=== PATIENT | female | born 1980 | race African-American/Black ===

== ENCOUNTER 2024-08-05 13:44 | Emergency (ER) | payer OTHER ==
[~2024-08-05] VITALS: Ht 165.1 cm; Wt 103.0 kg
[2024-08-05 13:54] VITALS: O2SAT 99
[2024-08-05] MEDS: ACETAMINOPHEN 325MG TABLET PO STA (15:15)
[2024-08-05 16:14] LABS: CLARITY URINE CLEAR (CLEAR); COLOR URINE YELLOW (YELLOW); GLUCOSE URINE NEGATIVE (NEGATIVE); KETONES URINE NEGATIVE (NEGATIVE); LEUKOCYTE ESTERASE URINE NEGATIVE (NEGATIVE); NITRITE URINE NEGATIVE (NEGATIVE); OCCULT BLOOD URINE NEGATIVE (NEGATIVE); PROTEIN URINE NEGATIVE (NEGATIVE); SPECIFIC GRAVITY URINE 1.014 (1.005-1.030); UROBILINOGEN URINE 0.2 E.U./dL (0.2-1.0)
[2024-08-05 16:53] LABS: BASOPHILS % 0.4 % (0.0-2.0); EOSINOPHILS % 0.9 % (0.0-5.0); HEMATOCRIT. 42.1 % (36.0-48.0); HEMOGLOBIN. 13.6 g/dL (12.0-16.0); LYMPHOCYTES % 27.3 % (20.0-50.0); MEAN CORPUSCULAR HEMOGLOBIN 30.7 pg (28.0-32.0); MEAN CORPUSCULAR HGB CONC 32.4 g/dL (31.0-37.0); MEAN CORPUSCULAR VOLUME 94.8 fL (81.0-99.0); MONOCYTES % 7.6 % (2.0-8.0); NEUTROPHILS % 63.8 % (40.0-76.0); PLATELET 242 x1000/uL (130-400); RED BLOOD CELL COUNT 4.44 mill/uL (4.2-5.4); RED CELL DISTRIBUTION WIDTH 15.2 % (11.6-14.6)
[2024-08-05 16:54] LABS: INFLUENZA TYPE A Presumptive Negative (Pres. Neg.)
[2024-08-05 16:55] LABS: INFLUENZA TYPE B Presumptive Negative (Pres. Neg.)
[2024-08-05 16:57] LABS: CHLORIDE 102 mEq/L (98-107); SODIUM 138 mEq/L (136-145)
[2024-08-05 16:58] LABS: CALCIUM 9.2 mg/dL (8.7-10.4); CARBON DIOXIDE 29 mEq/L (21-32)
[2024-08-05 17:03] LABS: CREATININE 0.8 mg/dL (0.6-1.0); GLUCOSE 80 mg/dL (70-105); UREA NITROGEN BLOOD 9 mg/dL (9-23)
[2024-08-05 17:07] LABS: TROPONIN I HIGH SENSITIVITY < 4 ng/L (3.0-34)
[2024-08-05] MEDS ORDERED: D-ME473S50 PO (17:41)
[2024-08-05] MEDS ORDERED: NAPR-681 MT (17:41)
[2024-08-05] MEDS ORDERED: ALBU18HF2 IH (17:41)
[2024-08-05 17:54] VITALS: BP 150/87; PULSE 62; RESP 16; TEMP 36.8; O2SAT 99
== END 2024-08-05 17:54 | disposition home or self-care (01) ==
LOC: ER 13:44
DX: J20.9 Acute bronchitis, unspecified (principal); R07.89 Other chest pain; I10 Essential (primary) hypertension; Z79.899 Other long term (current) drug therapy; Z20.822 Contact with and (suspected) exposure to COVID-19
CPT/HCPCS: 36415; 71045; 80048; 81003; 84484; 85025; 87426; 87804; 93005; 99285